=== PATIENT | female | born 1995 | race African-American/Black ===

== ENCOUNTER 2017-10-21 10:19 | Emergency (ER) | payer OTHER ==
[2017-10-21 11:18] LABS: Bilirubin Negative (Negative); Blood, Urine Negative (Negative); Clarity Slightly Cloudy (Clear); Glucose, Urine (Dipstick) Negative (Negative); Leukocyte Negative (Negative); Nitrite Negative (Negative); Protein, Urine (Dipstick) Negative (Neg-Trace); Urobilinogen 0.2 mg/dL (0.2-1.0); pH, Urine 7.5 (5.0-9.0)
[2017-10-21 11:19] LABS: Pregnancy Test - Urine (BHCG) Negative (Negative); Pregu Control Background? CLEAR/WHITE (CLR/WHITE); Pregu Control Bar Appear? YES (CONTROL BAR)
[2017-10-21 11:29] LABS: Hemoglobin 12.4 g/dL (12.0-16.0); Mean Corpuscular Hemoglobin 27.8 pg (25.0-35.0); Mean Corpuscular Volume 79.5 fL (78.0-98.0); Mean Platelet Volume 5.8 fL (7.4-10.4); Platelet Count 216 thou/uL (130-400); RBC Distribution Width 11.2 % (11.5-14.5); Red Blood Cell (RBC) Count 4.47 mill/uL (4.00-5.20); White Blood Cell (WBC) Count 6.5 thou/uL (4.8-10.8)
[2017-10-21 11:32] LABS: Anion Gap 15 mmol/L (10-20); BUN (Urea Nitrogen) 13 mg/dL (7.0-18.7); Calc. Creatinine Clearance 0 mL/min (70-130); Calcium 9.6 mg/dL (7.8-10.44); Carbon Dioxide 24 mmol/L (22-29); Chloride 105 mmol/L (98-107); Estimated GFR-MDRD Greater than 90; Glucose 85 mg/dL (70-105); Potassium 4.1 mmol/L (3.5-5.1); Sodium 140 mmol/L (136-145)
[2017-10-21 11:41] LABS: Band 1 % (5-11); Eosinophils 5 % (0-10); Lymphocytes 31 % (28-48); MDiff Complete? YES; Monocytes 5 % (0-4); Neutrophil 56 % (31-61); PLT Morphology Comment Appears Adequate; RBC Morphology Normal
--- NOTE | 2017-10-21 11:42 | CT ---
CT OF THE HEAD WITHOUT CONTRAST: Date: 10/21/17 COMPARISON: None. HISTORY: Possible seizure. TECHNIQUE: Serial axial CT imaging is obtained at 4.8 mm intervals from vertex through skull base without contra st. FINDINGS: The visualized paranasal sinuses/mastoid air cells are well aerated. There is no displaced calvarial fracture. 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 There is no intracranial hemorrhage, midline shift, mass effect, or ventricular enlargement. IMPRESSION: No intracranial hemorrhage. If there is clinical concern for a seizure focus, a follow-up brain MRI i s recommended. POS: [facility]
== END 2017-10-21 11:57 | disposition home or self-care (01) ==
LOC: SCSER 10:19
DX: R56.9 Unspecified convulsions (principal); F84.0 Autistic disorder; G43.909 Migraine, unspecified, not intractable, without status migrainosus
CPT/HCPCS: 70450; 80048; 81003; 81025; 84146; 85025